=== PATIENT | male | born 1940 | race Caucasian/White ===

== ENCOUNTER 2022-09-12 16:11 | Inpatient (IN) | payer MEDICARE, BC ==
[~2022-09-12] VITALS: Ht 177.8 cm; Wt 99.8 kg
--- NOTE | 2022-09-12 16:35 | NUR ---
BIB RA C/O SHORTNESS OF BREATH, O2 SAT. FLUCTUATING FROM 77-98% WITH 3LIT O2. PLACED ON BED, AAOX4, DYSNEIC RR-22 SATURATING AT 97% WITH 3LIT O2
--- NOTE | 2022-09-12 17:15 | NUR ---
SALES ADMINISTRATOR AT BEDSIDE
--- NOTE | 2022-09-12 17:15 | NUR ---
Eliza bernabe in [facility] - 09/12/22 at 1736 by PAWAN SWAB FOR COVID19 SENT TO LAB
[2022-09-12 17:28] LABS: BASOPHILS % (AUTO) 0.1 % (0.0-2.0); EOSINOPHILS % (AUTO) 0.2 % (0.0-6.0); HEMATOCRIT 34 % (39-51); HEMOGLOBIN 11.3 g/dL (13.5-17.5); LYMPHOCYTES # (AUTO) 0.2 K/uL (0.8-4.8); MEAN CORPUSCULAR HGB CONC 33 g/dl (31.0-36.0); MEAN CORPUSCULAR VOLUME 99 fL (80-96); MONOCYTES # (AUTO) 0.4 K/uL (0.1-1.30); MONOCYTES % (AUTO) 4.8 % (2.0-12.0); NEUTROPHILS % (AUTO) 92.9 % (43.0-81.0); PLATELET COUNT (AUTO) 79 K/uL (150-450); RED BLOOD CELL COUNT(AUTO) 3.44 MIL/uL (4.5-6.0); WHITE BLOOD COUNT (AUTO) 8.7 K/uL (4.3-11.0)
[2022-09-12] MEDS ORDERED: PIPERACILLIN /TAZOBACTAM 3.375 G in IV D5W 50 ML IV ONE (17:30)
--- NOTE | 2022-09-12 17:34 | NUR ---
[facility].
--- NOTE | 2022-09-12 17:59 | NUR ---
SWAB FOR COVID19 SENT TO LAB
[2022-09-12 18:00] LABS: CALCIUM, SERUM 8.1 mg/dL (8.5-10.1); CARBON DIOXIDE 29 mmol/L (21-32); CHLORIDE 99 mmol/L (98-107); CREATININE 1.8 mg/dL (0.6-1.3); GLUCOSE 116 mg/dL (74-106); POTASSIUM 3.9 mmol/L (3.5-5.1); SODIUM SERUM 135 mmol/L (136-145); UREA NITROGEN, BLOOD 14 mg/dL (7-18)
[2022-09-12 18:57] LABS: BAND % (MANUAL) 9 % (0.0-5.0); BASOPHILS % (MANUAL) 0 % (0.0-2.0); EOSINOPHILS % (MANUAL) 0 % (0-4); LYMPHOCYTES % (MANUAL) 4 % (16-48); MONOCYTES % (MANUAL) 6 % (0-11.0); NEUTROPHILS % (MANUAL) 81 (42-76)
[2022-09-13] MEDS ORDERED: POTA20TA83 PO (02:30)
[2022-09-13] MEDS ORDERED: LACT10SO29 PO (02:30)
[2022-09-13] MEDS ORDERED: APIX5TAB PO (02:30)
[2022-09-13] MEDS ORDERED: RIFA550T PO (02:30)
[2022-09-13] MEDS ORDERED: FURO-145 PO (02:30)
[2022-09-13] MEDS ORDERED: CHOL400T11 PO (02:30)
[2022-09-13] MEDS ORDERED: METO-357 PO (02:30)
[2022-09-13] MEDS ORDERED: OMEP40CA21 PO (02:30)
[2022-09-13] MEDS ORDERED: LEVO50TA8 PO (02:30)
[2022-09-13] MEDS ORDERED: ENOXAPARIN SODIUM 40 MG/0.4 ML DISP.SYRIN SQ SCH (03:00)
[2022-09-13] MEDS ORDERED: ONDANSETRON HCL/PF 4 MG/2 ML VIAL IVP PRN (03:00)
[2022-09-13] MEDS ORDERED: BUMETANIDE INJ 6 MG in IV NS 0.9% 36 ML IV ONE (03:00)
[2022-09-13] MEDS ORDERED: ACETAMINOPHEN 325 MG TABLET PO PRN (03:00)
[2022-09-13] MEDS ORDERED: LEVOTHYROXINE SODIUM 50 MCG TABLET PO SCH (03:00)
[2022-09-13] MEDS ORDERED: CEFTRIAXONE 1 G in IV D5W 50 ML IV SCH (03:00)
[2022-09-13] MEDS ORDERED: Z GUARD REMEDY 4 OZ OINT TP PRN (03:00)
[2022-09-13] MEDS ORDERED: LEVOTHYROXINE SODIUM 50 MCG TABLET ONE (03:03)
[2022-09-13] MEDS ORDERED: CEFTRIAXONE 1GM BAG (ER ONLY) 50 ML IV ONE (03:03)
[2022-09-13] MEDS ORDERED: ENOXAPARIN SODIUM 40 MG/0.4 ML DISP.SYRIN SQ ONE (03:03)
[2022-09-13] MEDS ORDERED: BUMETANIDE INJ 0.25 MG/ML VIAL ONE ×2 (03:21→03:25)
[2022-09-13 04:31] LABS: THYROID STIMULATING HORMONE 1.222 uIU/mL (0.358-3.74)
--- NOTE | 2022-09-13 05:10 | NUR ---
PT AWAKE AND ALERT BREATHING UNLABORED DENIES SOB 2LPM NC. REMAINS ON MONITOR AND V/S WNL.
[2022-09-13] MEDS ORDERED: PANTOPRAZOLE 40 MG TABLET.DR PO ONE (07:32)
[2022-09-13] MEDS: PANTOPRAZOLE 40 MG TABLET.DR PO SCH (07:33)
--- NOTE | 2022-09-13 07:40 | NUR ---
[facility] 325-1
--- NOTE | 2022-09-13 08:05 | NUR ---
Nurse Knowledge Exchange with NARDA Robbins
--- NOTE | 2022-09-13 08:30 | NUR ---
RN Accepting Report Patient AOx4 able to express his concerns. Patient arrived to unit safely, all safety precautions taken. Patient able to provide his own history, states his will be coming up later. No signs of distress or discomfort. Will assess and provide care as needed.
[2022-09-13] MEDS ORDERED: DOXYCYCLINE 100 MG in IV D5W 100 ML IV SCH (09:00)
[2022-09-13] MEDS ORDERED: ASPIRIN EC 81 MG TABLET.DR PO SCH (09:00)
[2022-09-13] MEDS: DOXYCYCLINE 100 MG in IV D5W 100 ML IV SCH ×2 (09:47→21:03)
[2022-09-13] MEDS: LACTULOSE 10 G/15 ML UDC (PYXIS) PO SCH ×3 (11:55→22:50)
[2022-09-13] MEDS: APIXABAN 2.5 MG TABLET PO SCH ×2 (12:00→21:00)
[2022-09-13] MEDS: RIFAXIMIN 550 MG TABLET PO SCH (16:04)
[2022-09-13 16:12] VITALS: BP 128/64
[2022-09-13] MEDS: FUROSEMIDE 40 MG/4 ML VIAL IV SCH (17:30)
--- NOTE | 2022-09-13 18:54 | NUR ---
RN Closing Note Patient AOx4 able to express his own concerns. Patient aware of plan of care and the need to stay NPO after midnight. Patient agrees with plan for thoracentesis 09/14. Held medications due to INR value, MD made aware. Patient remained safe throughout shift, all safety precautions taken, call light and table within reach, bed at lowest position.
--- NOTE | 2022-09-13 19:30 | NUR ---
MULTIFOCAL BUTTON INSPECTOR OPENING NOTES RECEIVED PATIENT IN BED ASLEEP. EASY TO AROUSE. A/O X3. BREATHING EVEN AND NON-LABORED. ON O2 AT 2LPM VIA NASAL CANULA. NOT IN APPARENT DISTRESS. DENIES PAIN AT THIS TIME. ON TELE MONITOR READING A-FIB AT 96 BPM. HAS RIGHT ANTECUBITAL IV ACCESS #18G AND SALINE LOCKED. NO S/S OF INFILTRATION NOTED. PATIENT AWARE HE WILL BE NPO POST MIDNIGHT. SAFETY PRECAUTIONS IN PLACE: BED LOW AND LOCKED, SIDE RAILS UP X2, CALL LIGHT WITHIN REACH.
[2022-09-13 20:00] VITALS: BP 120/85
[2022-09-14] VITALS: BP 128/63
[2022-09-14] MEDS ORDERED: CEFTRIAXONE 1 G in IV D5W 50 ML IV SCH (03:00)
[2022-09-14 04:00] VITALS: BP 134/65
[2022-09-14] MEDS: LACTULOSE 10 G/15 ML UDC (PYXIS) PO SCH ×3 (04:14→14:16)
--- NOTE | 2022-09-14 07:00 | NUR ---
WHITE SOURER CLOSING NOTES PATIENT LAYING IN BED AWAKE. A/O X3 WITH PERIODS OF FORGETFULNESS AND CONFUSION. ABLE TO VERBALIZE NEEDS. CURRENTLY NPO. NO SOB OR NOTED. TOLERATING O2 AT 2LPM VIA NASAL CANULA WELL. NO C/O PAIN OR DISCOMFORT. AFEBRILE. ON TELE MONITOR READING A-FIB AT 73 BPM. HAS RIGHT ANTECUBITAL IV ACCESS #18G AND SALINE LOCKED. INTACT, PATENT AND FLUSHING. ALL DUE MEDS GIVEN AND NEEDS ATTENDED. SAFETY PRECAUTIONS MAINTAINED. WILL ENDORSE TO NEXT SHIFT FOR FREDERICK.
--- NOTE | 2022-09-14 07:15 | NUR ---
ms rn received on bed, awake,alert,oriented x3,not in any form of distress, respirations even and unlabbored,no sob noted, lungs are diminished,abdomen soft,positive bowel sounds,denies pain at this time,all needs attended.
[2022-09-14] MEDS ORDERED: LEVOTHYROXINE SODIUM 50 MCG TABLET PO SCH (07:30)
[2022-09-14 07:51] LABS: CALCIUM, SERUM 8.2 mg/dL (8.5-10.1); CARBON DIOXIDE 29 mmol/L (21-32); CHLORIDE 101 mmol/L (98-107); CREATININE 1.5 mg/dL (0.6-1.3); GLUCOSE 91 mg/dL (74-106); MAGNESIUM 1.9 mg/dL (1.8-2.4); PHOSPHORUS 3.7 mg/dL (2.5-4.9); POTASSIUM 4.5 mmol/L (3.5-5.1); SODIUM SERUM 136 mmol/L (136-145); UREA NITROGEN, BLOOD 21 mg/dL (7-18)
--- NOTE | 2022-09-14 08:00 | NUR ---
08:00 UPDATING INFORMATION REG. THORACENTESIS PER RN PT WAS NEVER GIVEN JUAN. LOVENOX LAST GIVEN 09/13/22 AT APPROXIMATELY 02:00. RN WILL ORDER BLOOD-DRAW FOR UPDATED COAGULATION.
--- NOTE | 2022-09-14 08:05 | NUR ---
WOUND CARE CONSULT: PT PRESENTS WITH SOME AREAS OF SKIN DISCOLORATION, PRESENT ON ADMISSION. PT WAS ABLE TO ASSIST WITH TURNING AND REPOSITIONING IN BED. DISCUSSED SKIN PROTECTION WITH NURSING STAFF. MD IN AGREEMENT WITH PLAN OF CARE.
[2022-09-14 08:28] LABS: BASOPHILS % (AUTO) 0.2 % (0.0-2.0); EOSINOPHILS % (AUTO) 1.6 % (0.0-6.0); HEMATOCRIT 32 % (39-51); HEMOGLOBIN 10.8 g/dL (13.5-17.5); LYMPHOCYTES # (AUTO) 0.5 K/uL (0.8-4.8); LYMPHOCYTES % (AUTO) 6.8 % (20.0-44.0); MEAN CORPUSCULAR HGB CONC 34 g/dl (31.0-36.0); MEAN CORPUSCULAR VOLUME 99 fL (80-96); MONOCYTES # (AUTO) 0.8 K/uL (0.1-1.30); NEUTROPHILS # (AUTO) 6.4 K/uL (1.8-8.9); NEUTROPHILS % (AUTO) 81.4 % (43.0-81.0); PLATELET COUNT (AUTO) 82 K/uL (150-450); WHITE BLOOD COUNT (AUTO) 7.9 K/uL (4.3-11.0)
[2022-09-14] MEDS: APIXABAN 2.5 MG TABLET PO SCH (09:00)
[2022-09-14] MEDS ORDERED: CHOLECALCIFEROL (VITAMIN D 3) 400 UNIT TABLET PO SCH (09:00)
[2022-09-14] MEDS ORDERED: POTASSIUM CHLORIDE 20 MEQ TAB.PRT.SR PO SCH (09:00)
[2022-09-14] MEDS ORDERED: FUROSEMIDE 20 MG TABLET PO SCH (09:00)
[2022-09-14] MEDS ORDERED: METOPROLOL SUCCINATE 50 MG TAB.SR.24H PO SCH (09:00)
--- NOTE | 2022-09-14 09:00 | NUR ---
ms rn on npo at this time, patient will have a thoracentesis today, meds held as well.
--- NOTE | 2022-09-14 09:45 | NUR ---
09:45 INR HIGH FOR THORACENTESIS. PER DR. MORATAYA PROCEDURE CAN BE DONE ON SATURDAY AFTER INR IS CORRECTED LIZETTE STEWARD WAS INFORMED. SHE WILL NOTIFY ORDERING MD.
--- NOTE | 2022-09-14 10:00 | NUR ---
ms rn [email or web address] a call from radiology, thoracentesis will be held today, pt's inr is 1.6, will do it saturday. jonathan ortega and dr. pate was aware.
[2022-09-14] MEDS: DOXYCYCLINE 100 MG in IV D5W 100 ML IV SCH (10:54)
[2022-09-14] MEDS: FUROSEMIDE 40 MG/4 ML VIAL IV SCH (10:54)
--- NOTE | 2022-09-14 14:00 | NUR ---
ms rn jonathan ortega came to see patient , decided to discharge him today and have procedure done as outpatient,all needs attended.
[2022-09-14] MEDS: RIFAXIMIN 550 MG TABLET PO SCH (14:01)
[2022-09-14 14:05] VITALS: BP 112/55
[2022-09-14] MEDS: PANTOPRAZOLE 40 MG TABLET.DR PO SCH (14:07)
--- NOTE | 2022-09-14 16:00 | NUR ---
ms rn endoscopy instructions given and understood, refused to take d/c pictures at lower extremities, mirian almendarez was held for procedure on saturday,, went home accompanied by .
[2022-09-14 18:43] LABS: EOSINOPHILS % (MANUAL) 5 % (0-4); LYMPHOCYTES % (MANUAL) 8 % (16-48); MONOCYTES % (MANUAL) 5 % (0-11.0); NEUTROPHILS % (MANUAL) 82 (42-76)
== END 2022-09-14 16:22 | disposition home or self-care (01) | DRG 291 ==
LOC: ER 16:14 → TRANSITION 09-13 00:36 → TELE 09-13 07:52
PROVIDERS: ADMIT Nurse Practitioner Acute Care; ATTEND Nurse Practitioner Acute Care
DX: I11.0 Hypertensive heart disease with heart failure (principal); I50.33 Acute on chronic diastolic (congestive) heart failure; N17.0 Acute kidney failure with tubular necrosis; J90 Pleural effusion, not elsewhere classified; E87.1 Hypo-osmolality and hyponatremia; G93.40 Encephalopathy, unspecified; D68.59 Other primary thrombophilia; J98.11 Atelectasis; Z20.822 Contact with and (suspected) exposure to COVID-19; Z85.118 Personal history of other malignant neoplasm of bronchus and lung; I48.91 Unspecified atrial fibrillation; E03.9 Hypothyroidism, unspecified; C61 Malignant neoplasm of prostate; H91.90 Unspecified hearing loss, unspecified ear; Z96.89 Presence of other specified functional implants; Z90.49 Acquired absence of other specified parts of digestive tract; Z90.79 Acquired absence of other genital organ(s); Z79.899 Other long term (current) drug therapy; Z79.01 Long term (current) use of anticoagulants; J44.9 Chronic obstructive pulmonary disease, unspecified; Z91.81 History of falling; M19.012 Primary osteoarthritis, left shoulder; I70.0 Atherosclerosis of aorta; Z85.030 Personal history of malignant carcinoid tumor of large intestine
CPT/HCPCS: 36415; 71045-TC; 76770-TC; 80048-TC; 80061-TC; 82140-TC; 83735-TC; 83880; 84100-TC; 84443-TC; 84484-TC; 85025-TC; 85610-TC; 93307-TC; 94799-TC; C9803; G0378; J0696; J1650; J1940; J2405; J2543; J3490; J7040; J7060